=== PATIENT | female | born 1945 | race Caucasian/White ===

== ENCOUNTER 2021-02-06 13:25 | Emergency (ER) | payer MEDICARE ==
[2021-02-06 13:33] VITALS: RESP 18; TEMP 96.5
[2021-02-06] MEDS ORDERED: BAMLANIVIMAB (EUA) 700 MG, ETESEVIMAB (EUA) 1,400 MG in SODIUM CHLORIDE 0.9% 50 ML IVPB ONE (14:15)
[2021-02-06] MEDS ORDERED: SODIUM CHLORIDE 0.9% 50 ML IVPB ONE (14:15)
--- NOTE | 2021-02-06 15:12 | ED ---
General Adult HPI - General Chief complaint: Upper Respiratory Infection Stated complaint: Covid+/BAM Time Seen by Provider: 02/06/21 13:37 Source: patient, RN notes reviewed, old records reviewed Mode of arrival: ambulatory Limitations: no limitations - History of Present Illness Initial comments: Patient is a 75-year-old female with past medical history remarkable for hypertension, GERD who presents emergency Department complaining of a active COVID-19 infection. She presents requesting monoclonal antibody therapy. She is endorsing mild cough, rhinorrhea. She presents seeking monoclonal antibody therapy at this time. Patient is positive outside test, has a copy of the paper showing her positive test. This will be scanned into the system. She denies any fevers, without, nausea, vomiting. Denies any chest pain. His no other acute complaints at this time. Patient was not vaccinated. She presents to the emergency department for further evaluation. - Related Data Previous Rx's Medication Instructions Recorded Acetaminophen Tab [Tylenol] 325 mg PO Q6H #28 tab 02/06/21 Albuterol Inhaler [Ventolin Hfa 1 puff INHALATION RT-QID #8 gm 02/06/21 Inhaler] Allergies Allergy/AdvReac Type Severity Reaction Status Date / Time amlodipine [From Norvasc] AdvReac Swelling Verified 02/06/21 13:34 Review of Systems ROS Statement: Those systems with pertinent positive or pertinent negative responses have been documented in the HPI. Review of Systems: CONST: Denies fever EYES: Denies blurry vision ENT: Denies nasal congestion C/V: Denies Chest pain RESP: Endorses cough GI: Denies abdominal pain : Denies dysuria SKIN: Denies rash. MSK: Denies joint pain. NEURO: Denies headache ROS Other: All systems not noted in ROS Statement are negative. Past Medical History Past Medical History: GERD/Reflux, Hyperlipidemia, Hypertension History of Any Multi-Drug Resistant Organisms: None Reported Additional Past Surgical History / Comment(s): lumpectomy Past Psychological History: No Psychological Hx Reported Smoking Status: Never smoker Past Alcohol Use History: Occasional Past Drug Use History: None Reported General Exam - General Exam Comments Initial Comments: General: Appears in no acute distress. HEAD: Normal with no signs of head trauma. EYES: EOMI ENT: Hearing grossly intact, normal oropharynx. Acute rhinorrhea RESPIRATORY: Clear breath sounds bilaterally. No wheezes, rales, or rhonchi. No hypoxia. No increased work of breathing. C/V: Regular rate and rhythm. S1 and S2 auscultated, no edema, peripheral pulses 2+ and intact throughout ABD: Abd is soft, nontender, nondistended EXT: Normal range of motion, no obvious deformity SKIN: No rashes or lesions observed on exposed skin. NEURO: Alert and oriented 4. Limitations: no limitations Course Vital Signs 02/06/21 02/06/21 13:28 16:01 Temperature 96.5 F L Pulse Rate 58 L 80 Respiratory 18 18 Rate Blood Pressure 165/69 138/84 O2 Sat by Pulse 93 L 96 Oximetry Medical Decision Making - Medical Decision Making Patient presents emergency Department Covid positive seeking monoclonal antibody therapy. She does meet criteria, tested positive within the last 10 days as well as having symptom onset with him with 10 days. She consented to therapy. I do not believe that further laboratory studies or imaging are required at this time. Patient was administered medical antibody therapy. She tolerated therapy. I believe it is safer to be discharged home at this time. We discussed quarantine. I will provide the patient with a prescription for albuterol inhaler, Tylenol. I instructed the patient to follow up with their PCP in the next 3 days. I explained that the patient should return to the emergency department if they experience any worsening symptoms. Strict return precautions were discussed with the patient. The patient expressed understanding of these instructions. I answered all questions that the patient had. The patient was discharged home in fair condition with their prescriptions and follow up information. Disposition Clinical Impression: COVID-19 virus infection Disposition: HOME SELF-CARE Condition: Fair Instructions (If sedation given, give patient instructions): Coronavirus Disease 2019 (COVID-19) Prescriptions: Acetaminophen Tab [Tylenol] 325 mg PO Q6H #28 tab Albuterol Inhaler [Ventolin Hfa Inhaler] 1 puff INHALATION RT-QID #8 gm Is patient prescribed a controlled substance at d/c from ED?: No Referrals: Nonstaff,Physician [Primary Care Provider] - 1-2 days
[2021-02-06 16:02] VITALS: BP 138/84; PULSE 80
== END 2021-02-06 16:02 | disposition home or self-care (01) ==
LOC: EC 13:25
DX: U07.1 COVID-19 (principal); I10 Essential (primary) hypertension; Z88.8 Allergy status to other drugs, medicaments and biological substances
CPT/HCPCS: 99283; J3490